=== PATIENT | female | born 1995 | race African-American/Black ===

== ENCOUNTER 2018-09-11 14:51 | Emergency (ER) | payer SELFPAY ==
--- NOTE | 2018-09-11 15:21 | ER ---
Nurse's Notes [facility] Name: Porter Olson Age: 23 yrs Sex: Female : 1995 Arrival Date: 09/11/2018 Time: 14:59 Bed 12 Private MD: None, None Diagnosis: Otalgia, left ear Presentation: 09/11 15:03 Presenting complaint: Left ear pain x 4 days. Denies fever. Transition of care: patient hb was not received from another setting of care. Onset of symptoms was September 07, 2018. Risk Assessment: Do you want to hurt yourself or someone else? Patient reports no desire to harm self or others. Initial Sepsis Screen: Does the patient meet any 2 criteria? No. Patient's initial sepsis screen is negative. Does the patient have a suspected source of infection? No. Patient's initial sepsis screen is negative. Care prior to arrival: Medication(s) given: Tylenol, at 0830. 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 - Social history:: Smoking status: Patient/guardian denies using tobacco. - Ebola Screening: : No symptoms or risks identified at this time. Screenin:12 Abuse screen: Denies threats or abuse. Denies injuries from another. Nutritional hb screening: No deficits noted. Tuberculosis screening: No symptoms or risk factors identified. Fall Risk None identified. Assessment: 15:12 General: Appears in no apparent distress. Behavior is calm, cooperative. Pain: Pain hb currently is 10 out of 10 on a pain scale. Neuro: Level of Consciousness is awake, alert, obeys commands, Oriented to person, place, time, situation. Cardiovascular: Capillary refill < 3 seconds Patient's skin is warm and dry. Respiratory: Airway is patent Respiratory effort is even, unlabored, Respiratory pattern is regular, symmetrical. GI: No signs and/or symptoms were reported involving the gastrointestinal system. : No signs and/or symptoms were reported regarding the genitourinary system. EENT: Reports pain since left ear. Derm: Skin is intact, is healthy with good turgor. Musculoskeletal: No signs and/or symptoms reported regarding the musculoskeletal system. Vital Signs: 15:05 BP 142 / 76; Pulse 86; Resp 16; Temp 98.3; Pulse Ox 100% on R/A; Weight 83.91 kg; hb Height 4 ft. 11 in. (149.86 cm); Pain 10/10; 15:05 Body Mass Index 37.36 (83.91 kg, 149.86 cm) hb ED Course: 14:59 Patient arrived in ED. dl4 15:00 None, None is Private Physician. dl4 15:04 Triage completed. hb 15:04 Arm band placed on. hb 15:09 Candida Pina F[facility]-C [facility]. kb 15:09 Yunier Bautista MD is Attending Physician. kb 15:12 Patient has correct armband on for positive identification. Call light in reach. hb 15:15 Leona Elliott, RN is Primary Nurse. hb 15:44 No provider procedures requiring assistance completed. Patient did not have IV access hb during this emergency room visit. Administered Medications: 15:30 Drug: Ibuprofen 800 mg Route: PO; hb 15:44 Follow up: Response: Medication administered at discharge. hb Outcome: 15:20 Discharge ordered by . kb 15:44 Discharged to home ambulatory, with significant other. hb 15:44 Condition: stable 15:44 Discharge instructions given to patient, Instructed on discharge instructions, follow up and referral plans. medication usage, Demonstrated understanding of instructions, follow-up care, medications. 15:44 Patient left the ED. hb Signatures: Candida Pina FNP-C FNP-Leona De La Fuente, RN RN Brad Dial dl4 Corrections: (The following items were deleted from the chart) 15:20 15:05 BP 142 / 76; Pulse 16bpm; Resp 16bpm; Pulse Ox 100% RA; Temp 98.3F; 83.91 kg; hb Height 4 ft. 11 in.; BMI: 37.3; Pain 10/10; hb
--- NOTE | 2018-09-11 15:22 | EDPHYS ---
Physician Documentation [facility] Name: Porter Olson Age: 23 yrs Sex: Female : 1995 Arrival Date: 09/11/2018 Time: 14:59 Bed 12 Private MD: None, None ED Physician Yunier Bautista HPI: 09/11 15:35 This 23 yrs old Black Female presents to ER via Ambulatory with complaints of Ear Pain. kb 15:35 The patient presents with pain, moderate. The complaints affect the left ear. Onset: kb The symptoms/episode began/occurred 5 day(s) ago. Modifying factors: The symptoms are alleviated by nothing, the symptoms are aggravated by nothing. Associated signs and symptoms: The patient has no apparent associated signs or symptoms. Severity of symptoms: At their worst the symptoms were moderate in the emergency department the symptoms are unchanged. The patient has not experienced similar symptoms in the past. The patient has not recently seen a physician. 15:36 Left ear pain for 5 days. Denies fever or any other symptoms. 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 - Social history:: Smoking status: Patient/guardian denies using tobacco. - Ebola Screening: : No symptoms or risks identified at this time. ROS: 15:33 Constitutional: Negative for fever, chills, and weight loss, Neck: Negative for injury, kb pain, and swelling, Cardiovascular: Negative for chest pain, palpitations, and edema, Respiratory: Negative for shortness of breath, cough, wheezing, and pleuritic chest pain, Abdomen/GI: Negative for abdominal pain, nausea, vomiting, diarrhea, and constipation, MS/Extremity: Negative for injury and deformity, Skin: Negative for injury, rash, and discoloration, Neuro: Negative for headache, weakness, numbness, tingling, and seizure. 15:33 ENT: Positive for ear pain. Exam: 15:33 Constitutional: This is a well developed, well nourished patient who is awake, alert, kb and in no acute distress. Head/Face: Normocephalic, atraumatic. ENT: Nares patent. No nasal discharge, no septal abnormalities noted. Tympanic membranes are normal and external auditory canals are clear. Oropharynx with no redness, swelling, or masses, exudates, or evidence of obstruction, uvula midline. Mucous membranes moist. Neck: Trachea midline, no thyromegaly or masses palpated, and no cervical lymphadenopathy. Supple, full range of motion without nuchal rigidity, or vertebral point tenderness. No Meningismus. Chest/axilla: Normal chest wall appearance and motion. Nontender with no deformity. No lesions are appreciated. Cardiovascular: Regular rate and rhythm with a normal S1 and S2. No gallops, murmurs, or rubs. Normal PMI, no JVD. No pulse deficits. Respiratory: Lungs have equal breath sounds bilaterally, clear to auscultation and percussion. No rales, rhonchi or wheezes noted. No increased work of breathing, no retractions or nasal flaring. Abdomen/GI: Soft, non-tender, with normal bowel sounds. No distension or tympany. No guarding or rebound. No evidence of tenderness throughout. Skin: Warm, dry with normal turgor. Normal color with no rashes, no lesions, and no evidence of cellulitis. MS/ Extremity: Pulses equal, no cyanosis. Neurovascular intact. Full, normal range of motion. Neuro: Awake and alert, GCS 15, oriented to person, place, time, and situation. Cranial nerves II-XII grossly intact. Motor strength 5/5 in all extremities. Sensory grossly intact. Cerebellar exam normal. Normal gait. Vital Signs: 15:05 BP 142 / 76; Pulse 86; Resp 16; Temp 98.3; Pulse Ox 100% on R/A; Weight 83.91 kg; hb Height 4 ft. 11 in. (149.86 cm); Pain 10/10; 15:05 Body Mass Index 37.36 (83.91 kg, 149.86 cm) hb MDM: 15:09 Patient medically screened. kb 15:34 Data reviewed: vital signs, nurses notes. Data interpreted: Pulse oximetry: on room air kb is 100 %. Interpretation: normal. Counseling: I had a detailed discussion with the patient and/or guardian regarding: the historical points, exam findings, and any diagnostic results supporting the discharge/admit diagnosis, the need for outpatient follow up, an ENT specialist, a family practitioner, to return to the emergency department if symptoms worsen or persist or if there are any questions or concerns that arise at home. Administered Medications: 15:30 Drug: Ibuprofen 800 mg Route: PO; hb 15:44 Follow up: Response: Medication administered at discharge. Disposition: 17:20 Co-signature as Attending Physician, Yunier Bautista MD. rn Disposition: 09/11/18 15:20 Discharged to Home. Impression: Otalgia, left ear. - Condition is Stable. - Discharge Instructions: Earache, Adult. - Medication Reconciliation Form, Thank You Letter, Antibiotic Education, Prescription Opioid Use form. - Follow up: Emergency Department; When: As needed; Reason: Worsening of condition. Follow up: Private Physician; When: 2 - 3 days; Reason: Recheck today's complaints, Continuance of care, Re-evaluation by your physician. Signatures: Candida Pina, RPG PROGRAMMER ANALYST-C RPG PROGRAMMER ANALYST-Ckb Yunier Bautista MD MD rn Baxter, Heather, RN RN Corrections: (The following items were deleted from the chart) 15:44 15:20 09/11/2018 15:20 Discharged to Home. Impression: Otalgia, left ear. Condition is hb Stable. Forms are Medication Reconciliation Form, Thank You Letter, Antibiotic Education, Prescription Opioid Use. Follow up: Emergency Department; When: As needed; Reason: Worsening of condition. Follow up: Private Physician; When: 2 - 3 days; Reason: Recheck today's complaints, Continuance of care, Re-evaluation by your physician. kb
[2018-09-11] MEDS ORDERED: IBUPROFEN 200 MG TAB PO ONE (15:42)
== END 2018-09-11 15:44 | disposition home or self-care (01) ==
LOC: ER 14:51
DX: H92.02 Otalgia, left ear (principal)
CPT/HCPCS: 99283

== ENCOUNTER 2018-09-12 00:09 | Emergency (ER) | payer SELFPAY ==
--- NOTE | 2018-09-12 01:39 | ER ---
Nurse's Notes [facility] Name: Porter Olson Age: 23 yrs Sex: Female : 1995 Arrival Date: 09/12/2018 Time: 00:11 Bed 5 Private MD: Diagnosis: Acute lymphadenitis of face, head and neck-left post auricular Presentation: 09/12 00:31 Presenting complaint: Patient states: i was here earlier today for ear pain but it is sr6 still hurting. Transition of care: patient was not received from another setting of care. Onset of symptoms was September 12, 2018. Risk Assessment: Do you want to hurt yourself or someone else? Patient reports no desire to harm self or others. Initial Sepsis Screen: Does the patient meet any 2 criteria? No. Patient's initial sepsis screen is negative. Does the patient have a suspected source of infection? No. Patient's initial sepsis screen is negative. Care prior to arrival: None. 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 - Social history:: Smoking status: Patient/guardian denies using tobacco. - Ebola Screening: : No symptoms or risks identified at this time. Screenin:36 Abuse screen: Denies threats or abuse. Nutritional screening: No deficits noted. sr6 Tuberculosis screening: No symptoms or risk factors identified. Fall Risk None identified. Assessment: 00:36 General: Appears in no apparent distress. obese, Behavior is calm, cooperative. Pain: sr6 Complains of pain in left side of face and ear Pain currently is 10 out of 10 on a pain scale. Pain began 4 days ago. Neuro: Level of Consciousness is awake, alert, obeys commands, Oriented to person, place, time, situation. Cardiovascular: No deficits noted. Respiratory: Respiratory effort is even, unlabored. GI: No signs and/or symptoms were reported involving the gastrointestinal system. EENT: Reports pain in left side of face and ear. Musculoskeletal: Circulation, motion, and sensation intact. 02:11 Reassessment: Patient and/or family updated on plan of care and expected duration. Pain bb level reassessed. Patient is alert, oriented x 3, equal unlabored respirations, skin warm/dry/pink. pt states pain is slowly going away verbalized understanding of and agrees to plan of care discharge instructions given pt ambulated with steady gait to exit accompanied by family Patient states feeling better. Vital Signs: 00:34 BP 132 / 89; Pulse 78; Resp 18 S; Temp 98.2(O); Pulse Ox 100% on R/A; Weight 99.79 kg sr6 (R); Height 5 ft. (152.40 cm); Pain 10/10; 00:34 Body Mass Index 42.97 (99.79 kg, 152.40 cm) sr6 ED Course: 00:11 Patient arrived in ED. ag3 00:16 David Greonimo PA is PHCP. cp 00:16 David Keating MD is Attending Physician. cp 00:33 Triage completed. sr6 00:34 Arm band placed on Patient placed in an exam room, on a stretcher, on pulse oximetry. sr6 Family accompanied patient. 00:35 Strep swab sent to lab. sr6 00:36 Patient has correct armband on for positive identification. Bed in low position. Call sr6 light in reach. Adult w/ patient. 00:42 Patient did not have IV access during this emergency room visit. sr6 02:12 No provider procedures requiring assistance completed. Patient did not have IV access bb during this emergency room visit. Administered Medications: 01:49 Drug: TORadol 60 mg Route: IM; Site: left gluteus; bb 02:12 Follow up: Response: Pain is decreased bb Outcome: 01:38 Discharge ordered by . cp 02:12 Discharged to home ambulatory, with family. bb 02:12 Condition: stable 02:12 Discharge instructions given to patient, Instructed on discharge instructions, follow up and referral plans. medication usage, Demonstrated understanding of instructions, follow-up care, medications, Prescriptions given X 1. 02:13 Patient left the ED. bb Signatures: Kely Wilson RN RN bb David Geronimo PA PA cp Gomez, Alice 3 Priscilla Deras sr6
--- NOTE | 2018-09-12 01:39 | EDPHYS ---
Physician Documentation [facility] Name: Porter Olson Age: 23 yrs Sex: Female : 1995 Arrival Date: 09/12/2018 Time: 00:11 Bed 5 Private MD: ED Physician David Keating HPI: 09/12 00:35 This 23 yrs old Black Female presents to ER via Ambulatory with complaints of Ear Pain. cp 00:35 The patient presents with pain, that is acute. The complaints affect the behind left cp ear. 00:35 Onset: The symptoms/episode began/occurred 4 day(s) ago. cp 00:35 Associated signs and symptoms: Pertinent negatives: cough, fever, sinus trouble, sore cp throat, vertigo, vomiting. Severity of symptoms: in the emergency department the symptoms are unchanged despite home interventions. The patient has been recently seen at the [facility] Emergency Department, today, for similar complaints given RX for Ibuprofen. 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 - Social history:: Smoking status: Patient/guardian denies using tobacco. - Ebola Screening: : No symptoms or risks identified at this time. ROS: 00:45 Constitutional: Negative for body aches, chills, fever, poor PO intake. cp 00:45 Eyes: Negative for injury, pain, redness, and discharge. cp 00:45 ENT: Positive for pain behind left ear, Negative for drainage from ear(s), sinus congestion, sinus pain, difficulty swallowing, difficulty handling secretions. 00:45 Cardiovascular: Negative for chest pain. 00:45 Respiratory: Negative for cough, wheezing. 00:45 Abdomen/GI: Negative for abdominal pain, nausea, vomiting, and diarrhea. 00:45 Skin: Negative for rash. 00:45 Neuro: Negative for altered mental status, headache, weakness. 00:45 All other systems are negative. Exam: 00:45 Constitutional: The patient appears in no acute distress, alert, awake, non-toxic, well cp developed, well nourished. 00:45 Head/Face: Normocephalic, atraumatic. cp 00:45 Eyes: Periorbital structures: appear normal, Conjunctiva: normal, no exudate, no injection, Sclera: no appreciated abnormality, Lids and lashes: appear normal, bilaterally. 00:45 ENT: External ear(s): are unremarkable, Ear canal(s): are normal, clear, TM's: dullness, bilaterally, Nose: is normal, Mouth: Lips: moist, Oral mucosa: pink and intact, moist, Posterior pharynx: is normal, airway is patent, no erythema, no exudate, Dental exam: normal. 00:45 Neck: ROM/movement: Meningeal signs: are not present, nuchal rigidity, is not appreciated, Lymph nodes: lymphadenopathy is appreciated, tender enlarged node left post auricular. 00:45 Chest/axilla: Inspection: normal. 00:45 Cardiovascular: Rate: normal. 00:45 Respiratory: the patient does not display signs of respiratory distress, Respirations: normal. 00:45 Skin: no rash present. Vital Signs: 00:34 BP 132 / 89; Pulse 78; Resp 18 S; Temp 98.2(O); Pulse Ox 100% on R/A; Weight 99.79 kg sr6 (R); Height 5 ft. (152.40 cm); Pain 10/10; 00:34 Body Mass Index 42.97 (99.79 kg, 152.40 cm) sr6 MDM: 00:29 Patient medically screened. cp 01:00 Differential diagnosis: otitis media, otitis externa, acute otalgia, barotrauma , cp mastoiditis, lymphadenitis, strep throat, abscess, cellulitis, TMJ pain, neuralgia. 01:37 Data reviewed: vital signs, nurses notes, and as a result, I will discharge patient. cp 01:37 Counseling: I had a detailed discussion with the patient and/or guardian regarding: the cp historical points, exam findings, and any diagnostic results supporting the discharge/admit diagnosis, lab results, to return to the emergency department if symptoms worsen or persist or if there are any questions or concerns that arise at home. Response to treatment: the patient's symptoms have mildly improved after treatment, and as a result, I will discharge patient. 09/12 01:27 Order name: Group A Streptococcus Rapid Sc EDWI 09/12 01:41 Order name: Throat Culture EDWI Administered Medications: 01:49 Drug: TORadol 60 mg Route: IM; Site: left gluteus; bb 02:12 Follow up: Response: Pain is decreased bb Disposition: 09/12/18 01:38 Discharged to Home. Impression: Acute lymphadenitis of face, head and neck - left post auricular. - Condition is Stable. - Discharge Instructions: Lymphadenopathy. - Prescriptions for Keflex 500 mg Oral Capsule - take 1 capsule by ORAL route every 8 hours for 10 days; 30 capsule. - Family Work Release, Medication Reconciliation Form, Thank You Letter, Antibiotic Education, Prescription Opioid Use form. - Follow up: Private Physician; When: 48 Hours; Reason: Worsening of condition. - Problem is new. - Symptoms have improved. Addendum: 09/13/2018 07:12 Co-signature as Attending Physician, David Keating MD I agree with the assessment and c larose plan of care. Signatures: Dispatcher [employer] [facility] David Keating MD MD cha Ballard, Brenda, RN RN David Cespedes PA PA cp Roque, Sharlyn sr6 Corrections: (The following items were deleted from the chart) 09/12 02:13 01:38 09/12/2018 01:38 Discharged to Home. Impression: Acute lymphadenitis of face, bb head and neck - left post auricular. Condition is Stable. Forms are Medication Reconciliation Form, Thank You Letter, Antibiotic Education, Prescription Opioid Use. Follow up: Private Physician; When: 48 Hours; Reason: Worsening of condition. Problem is new. Symptoms have improved. cp
[2018-09-12] MEDS ORDERED: KETOROLAC 30 MG/ML INJ ONE (01:58)
== END 2018-09-12 02:13 | disposition home or self-care (01) ==
LOC: ER 00:09
DX: L04.0 Acute lymphadenitis of face, head and neck (principal)
CPT/HCPCS: 87070; 87081; 96372; 99284

== ENCOUNTER 2020-02-04 02:29 | Emergency (ER) | payer OTHER, SELFPAY ==
[2020-02-04 03:00] LABS: Absolute Lymphocytes (CBC) 1.8 K/uL (0.7-4.9); Basophils % 0.9 % (0-1.3); Hematocrit 37.3 % (36.0-45.0); Lymphocytes % 18.1 % (15.3-44.8); MPV 10.1 fL (7.6-11.3); RBC Red Blood Cell Count 4.77 M/uL (3.86-4.86)
[2020-02-04 03:39] LABS: Potassium 3.7 mmol/L (3.5-5.1)
[2020-02-04 03:55] LABS: Urine Bacteria <20 /HPF (<20)
[2020-02-04 03:56] LABS: Urine Blood 3+ (NEG); Urine Glucose NEGATIVE (NEG); Urine Protein 1+ (NEG); Urine Specific Gravity >1.030 (1.005-1.030)
--- NOTE | 2020-02-04 04:54 | EDPHYS ---
Physician Documentation [facility] Name: Porter Olson Age: 25 yrs Sex: Female : 1995 Arrival Date: 02/04/2020 Time: 02:30 Bed 6 Private MD: ED Physician Bunny Bowen HPI: 02/03 02:38 This 25 yrs old Black Female presents to ER via EMS with complaints of Vaginal Bleeding.tw4 02:38 The patient presents with vaginal bleeding that is moderate, a desire for an ultrasound tw4 to document her . Onset: The symptoms/episode began/occurred just prior to arrival, today. Modifying factors: The symptoms are alleviated by nothing, the symptoms are aggravated by nothing. Associated signs and symptoms: The patient has no apparent associated signs or symptoms. Severity of symptoms: At their worst the symptoms were moderate, in the emergency department the symptoms are unchanged. The patient has not experienced similar symptoms in the past. 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 - Social history:: Smoking status: unknown Patient/guardian denies using street drugs. ROS: 02:38 Positive for vaginal bleeding. tw4 02:38 Constitutional: Negative for fever, chills, and weight loss, Eyes: Negative for injury, pain, redness, and discharge, Cardiovascular: Negative for chest pain, palpitations, and edema, Respiratory: Negative for shortness of breath, cough, wheezing, and pleuritic chest pain, Abdomen/GI: Negative for abdominal pain, nausea, vomiting, diarrhea, and constipation, Back: Negative for injury and pain. 02:38 MS/Extremity: Negative for injury and deformity, Skin: Negative for injury, rash, and discoloration. Exam: 02:38 Constitutional: This is a well developed, well nourished patient who is awake, alert, tw4 and in no acute distress. Head/Face: Normocephalic, atraumatic. Cardiovascular: Regular rate and rhythm with a normal S1 and S2. No gallops, murmurs, or rubs. Normal PMI, no JVD. No pulse deficits. Respiratory: Lungs have equal breath sounds bilaterally, clear to auscultation and percussion. No rales, rhonchi or wheezes noted. No increased work of breathing, no retractions or nasal flaring. Abdomen/GI: Soft, non-tender, with normal bowel sounds. No distension or tympany. No guarding or rebound. No evidence of tenderness throughout. Skin: Warm, dry with normal turgor. Normal color with no rashes, no lesions, and no evidence of cellulitis. MS/ Extremity: Pulses equal, no cyanosis. Neurovascular intact. Full, normal range of motion. Neuro: Awake and alert, GCS 15, oriented to person, place, time, and situation. Cranial nerves II-XII grossly intact. Motor strength 5/5 in all extremities. Sensory grossly intact. Cerebellar exam normal. Normal gait. Vital Signs: 02:30 BP 129 / 78; Pulse 110; Resp 18; Temp 99.1; Pulse Ox 100% ; Pain 0/10; rr5 02:50 Weight 99.79 kg; Height 5 ft. 1 in. (154.94 cm); rr5 03:58 BP 121 / 62; Pulse 105; Resp 17; Pulse Ox 98% ; rr5 05:00 BP 115 / 70; Pulse 104; Resp 17; Pulse Ox 99% ; rr5 02:50 Body Mass Index 41.57 (99.79 kg, 154.94 cm) rr5 MDM: 02:36 Patient medically screened. 4 02/03 02:33 Order name: Abo/rh Typing; Complete Time: 09: ww [facility] 02/03 02:33 Order name: Basic Metabolic Panel; Complete Time: 09:15 ww [facility] 02/03 02:33 Order name: CBC with Diff; Complete Time: 09:15 ww [facility] 02/03 02:33 Order name: Beta hcg; Complete Time: 04:53 ww [facility] 02/03 02:55 Order name: Urine Dipstick--Ancillary (enter results) [facility] 02/03 02:55 Order name: Urine --Ancillary (enter results) [facility] 02/03 02:33 Order name: IV Saline Lock; Complete Time: 02:33 ww [facility] 02/03 02:33 Order name: Labs collected and sent; Complete Time: 02:33 ww [facility] 02/03 02:55 Order name: Urine Microscopic Only; Complete Time: 09:15 mw2 02/03 02:55 Order name: Urine Dipstick-Ancillary; Complete Time: 09:15 EDMS 02/03 02:56 Order name: Urine --Ancillary; Complete Time: 09:15 EDMS 02/03 03:56 Order name: Urine Culture; Complete Time: 09:15 EDMS 02/03 04:32 Order name: Transvaginal OB; Complete Time: 09:15 EDMS 02/03 02:33 Order name: NPO; Complete Time: 02:33 mg2 02/03 02:33 Order name: Urine Dipstick-Ancillary (obtain specimen); Complete Time: 02:49 mg2 02/03 02:33 Order name: Urine Test (obtain specimen); Complete Time: 02:49 mg2 Administered Medications: No medications were administered Disposition: 02/04/20 04:53 Discharged to Home. Impression: Threatened . - Condition is Stable. - Discharge Instructions: Threatened Miscarriage. - Medication Reconciliation Form, Thank You Letter, Antibiotic Education, Prescription Opioid Use form. - Follow up: Private Physician; When: Upon discharge from the Emergency Department; Reason: Recheck today's complaints, Continuance of care, Re-evaluation by your physician. Follow up: Malissa Ross MD; When: Upon discharge from the Emergency Department; Reason: Recheck today's complaints, Continuance of care, Re-evaluation by your physician. Follow up: Henry Lares MD; When: Upon discharge from the Emergency Department; Reason: If symptoms return, Recheck today's complaints, Continuance of care, Re-evaluation by your physician. Follow up: Paola Lopez MD; When: Upon discharge from the Emergency Department; Reason: If symptoms return, Recheck today's complaints, Continuance of care, Re-evaluation by your physician. - Problem is new. - Symptoms have improved. Signatures: Dispatcher [employer] [facility] Candida Pina, ANDRES MURRIETA-Bunny Hanks MD MD tw4 Guerrero Hackett RN RN mg2 Cl Deras RN RN rr5 Corrections: (The following items were deleted from the chart) 04:32 02:38 OB Limited+US.RAD.BRZ ordered. [facility] 04:55 04:53 02/04/2020 04:53 Discharged to Home. Impression: Threatened . Condition tw4 is Stable. Forms are Medication Reconciliation Form, Thank You Letter, Antibiotic Education, Prescription Opioid Use. Follow up: Private Physician; When: Upon discharge from the Emergency Department; Reason: Recheck today's complaints, Continuance of care, Re-evaluation by your physician. Problem is new. Symptoms have improved. tw4 05:09 04:55 02/04/2020 04:53 Discharged to Home. Impression: Threatened . Condition rr5 is Stable. Discharge Instructions: Threatened Miscarriage. Forms are Medication Reconciliation Form, Thank You Letter, Antibiotic Education, Prescription Opioid Use. Follow up: Private Physician; When: Upon discharge from the Emergency Department; Reason: Recheck today's complaints, Continuance of care, Re-evaluation by your physician. Follow up: Malissa Ross; When: Upon discharge from the Emergency Department; Reason: Recheck today's complaints, Continuance of care, Re-evaluation by your physician. Follow up: Henry Lares; When: Upon discharge from the Emergency Department; Reason: If symptoms return, Recheck today's complaints, Continuance of care, Re-evaluation by your physician. Follow up: Paola Lopez; When: Upon discharge from the Emergency Department; Reason: If symptoms return, Recheck today's complaints, Continuance of care, Re-evaluation by your physician. Problem is new. Symptoms have improved. tw4
--- NOTE | 2020-02-04 04:54 | ER ---
Nurse's Notes [facility] Name: Porter Olson Age: 25 yrs Sex: Female : 1995 Arrival Date: 02/04/2020 Time: 02:30 Bed 6 Private MD: Diagnosis: Threatened Presentation: 02/03 02:30 Chief complaint: EMS states: she woke up noticed she is bleeding with clots, she can't rr5 remember the exact LMP. HR 110bpm. 02:30 Coronavirus screen: Client denies travel out of the [place] in the last 14 days. At this rr5 time, the client does not indicate any symptoms associated with coronavirus-19. Ebola Screen: Patient negative for fever greater than or equal to 101.5 degrees Fahrenheit, and additional compatible Ebola Virus Disease symptoms Patient denies exposure to infectious person. Patient denies travel to an Ebola-affected area in the 21 days before illness onset. Initial Sepsis Screen: Does the patient meet any 2 criteria? No. Patient's initial sepsis screen is negative. Does the patient have a suspected source of infection? No. Patient's initial sepsis screen is negative. Risk Assessment: Do you want to hurt yourself or someone else? Patient reports no desire to harm self or others. Onset of symptoms was February 04, 2020. 02:30 Method Of Arrival: EMS: [facility] rr5 02:30 Acuity: RAFAEL 3 rr5 02:30 Note patient stated she took test last Sunday and it was positive. 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 - Social history:: Smoking status: unknown Patient/guardian denies using street drugs. Screenin:35 Abuse screen: Denies threats or abuse. Denies injuries from another. Nutritional mg2 screening: No deficits noted. Tuberculosis screening: No symptoms or risk factors identified. Fall Risk IV access (20 points). Assessment: 02:34 General: Appears in no apparent distress. comfortable, Behavior is calm, cooperative. mg2 Pain: Denies pain. Neuro: Level of Consciousness is awake, alert, obeys commands, Oriented to person, place, time, situation. Cardiovascular: Capillary refill < 3 seconds Patient's skin is warm and dry. Respiratory: Airway is patent Respiratory effort is even, unlabored, Respiratory pattern is regular, symmetrical. GI: No signs and/or symptoms were reported involving the gastrointestinal system. : Reports vaginal bleeding that is with clots, since today. EENT: No signs and/or symptoms were reported regarding the EENT system. Derm: Skin is intact, is healthy with good turgor, Skin is pink, warm \T\ dry. normal. Musculoskeletal: Circulation, motion, and sensation intact. Capillary refill < 3 seconds. 03:51 Reassessment: Patient appears in no apparent distress at this time. Patient and/or mg2 family updated on plan of care and expected duration. Pain level reassessed. Patient is alert, oriented x 3, equal unlabored respirations, skin warm/dry/pink. patient informed about the waiting time for ultrasound. 04:20 Reassessment: Patient appears in no apparent distress at this time. Patient is alert, rr5 oriented x 3, equal unlabored respirations, skin warm/dry/pink. ultrasound at bedside. 05:00 Reassessment: Patient appears in no apparent distress at this time. Patient is alert, rr5 oriented x 3, equal unlabored respirations, skin warm/dry/pink. discharge instruction given and explained without complaints made. Vital Signs: 02:30 BP 129 / 78; Pulse 110; Resp 18; Temp 99.1; Pulse Ox 100% ; Pain 0/10; rr5 02:50 Weight 99.79 kg; Height 5 ft. 1 in. (154.94 cm); rr5 03:58 BP 121 / 62; Pulse 105; Resp 17; Pulse Ox 98% ; rr5 05:00 BP 115 / 70; Pulse 104; Resp 17; Pulse Ox 99% ; rr5 02:50 Body Mass Index 41.57 (99.79 kg, 154.94 cm) rr5 ED Course: 02:30 Patient arrived in ED. cl3 02:33 Guerrero Hackett, RN is Primary Nurse. mg2 02:33 No provider procedures requiring assistance completed. Inserted saline lock: 20 gauge mg2 in right antecubital area, using aseptic technique. Blood collected. 02:35 Patient has correct armband on for positive identification. Pulse ox on. NIBP on. Door mg2 closed. Warm blanket given. 02:35 Arm band placed on right wrist. rr5 02:36 Triage completed. rr5 02:36 Bunny Bowen MD is Attending Physician. tw4 02:49 Urine collected: clean catch specimen, clear. rr5 04:34 Transvaginal OB In Process Unspecified. EDMS 04:55 Malissa Ross MD is Referral Physician. tw4 04:55 Henry Lares MD is Referral Physician. tw4 04:55 Paola Lopez MD is Referral Physician. tw4 05:05 IV discontinued, intact, bleeding controlled, No redness/swelling at site. Pressure rr5 dressing applied. Administered Medications: No medications were administered Outcome: 04:53 Discharge ordered by MD. tw4 05:05 Discharged to home via wheelchair. rr5 05:05 Condition: stable 05:05 Discharge instructions given to patient, Instructed on discharge instructions, follow up and referral plans. Demonstrated understanding of instructions, follow-up care. 05:09 Patient left the ED. rr5 Addendum: 02/07/2020 09:26 Addendum: Culture Results: Positive urine culture. Patient was not prescribed s v antibiotics at discharge. Report given to QUINTIN for further evaluation and then to qualification engineer for follow up with patient. Phone call Attempt #1 left voicemail. Signatures: Dispatcher [employer] EDSameera Ruggiero RN RN Bunny Bowen MD MD tw4 Guerrero Hackett RN RN mg2 Cl Deras RN RN rr5 Walt Nina cl3
--- NOTE | 2020-02-04 10:18 | RAD REPORT ---
EXAM DESCRIPTION: US , Transvaginal CLINICAL HISTORY: The patient is 25 years old and is Female; ABD PAIN passing clots. TECHNIQUE: Real-time transvaginal obstetrical ultrasound of the maternal pelvis and a first trimeste r with image documentation. Transvaginal imaging was used for better evaluation of the fe tus and adnexa. COMPARISON: No relevant prior studies available. FINDINGS: Gestation: Small gestational sac along the anterior margin of the endometrium, average d iameter 0.7 cm. No yolk sac or pole. Placenta/amniotic fluid: Subchorionic hemorrhage, 2.0 x 0.7 cm. Uterus/cervix: Uterus is 9.6 x 5.8 x 5.6 cm in size. No myometrial mass. Ovaries: Left ovary not visualized. Right ovary 2.6 x 2.7 x 2.0 cm in size. Free fluid: No free fluid. IMPRESSION: 1. Empty intrauterine gestational sac, EGA five weeks. This may be secondary to early gestation, blighted ovum, pseudogestational sac of ectopic or threatened . Serial q uantitative hCGs and ultrasound follow-up recommended. 2. Subchorionic hemorrhage, 2.0 x 0.7 cm. 3. Left ovary not visualized. Electronically signed by: Sameera Christy MD 02/04/2020 7:02 AM CUSTOMS INVESTIGATOR Due to temporary technical issues with the PACS/Fluency reporting system, reports are being signed by the in house radiologist without review as a courtesy to ensure prompt reporting. The interpreting r adiologist is fully responsible for the content of the report.
[2020-02-06 00:39] VITALS: TEMP 99.1
[2020-02-06 00:41] VITALS: BP 115/70; O2SAT 99
== END 2020-02-04 05:09 | disposition home or self-care (01) ==
LOC: ER 02:29
DX: O20.0 Threatened abortion (principal); Z3A.01 Less than 8 weeks gestation of pregnancy
CPT/HCPCS: 36415; 76817; 80048; 81003; 81015; 81025; 84702; 85025; 86900; 86901; 87077; 87086; 87088; 87186; 99284

== ENCOUNTER 2020-08-26 13:24 | Emergency (ER) | payer OTHER ==
--- OUTSIDE RECORDS SUMMARY | 2020-08-26 13:27 | XMS REPORT | Continuity of Care Document ---
:1995 Author Organization [facility] t Address [address] [place] [address] Care Team Providers Name Role Phone Rosario Andrade Attending Clinician Problems This patient has no known problems. Allergies, Adverse Reactions, Alerts This patient has no known allergies or adverse reactions. Medications This patient has no known medications. Procedures This patient has no known procedures. 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
--- NOTE | 2020-08-26 13:44 | ER ---
Nurse's Notes [facility] Name: Porter Olson Age: 25 yrs Sex: Female : 1995 Arrival Date: 08/26/2020 Time: 13:27 Bed Waiting Private MD: Diagnosis: Unspecified otitis externa, right ear Presentation: 08/26 13:40 Chief complaint: Patient states: R ear pain x 1 day. Had an earache 2 weeks ago and sv went away. Coronavirus screen: Client denies travel out of the [place] in the last 14 days. At this time, the client does not indicate any symptoms associated with coronavirus-19. Ebola Screen: No symptoms or risks identified at this time. Risk Assessment: Do you want to hurt yourself or someone else? Patient reports no desire to harm self or others. Onset of symptoms was August 25, 2020. 13:40 Method Of Arrival: Ambulatory sv 13:40 Acuity: RAFAEL 5 sv 13:41 Initial Sepsis Screen: Does the patient meet any 2 criteria? No. Patient's initial sv sepsis screen is negative. Does the patient have a suspected source of infection? No. Patient's initial sepsis screen is negative. Triage Assessment: 13:42 General: Appears in no apparent distress. comfortable, Behavior is calm, cooperative, sv appropriate for age. Pain: Complains of pain in right ear. Neuro: Level of Consciousness is awake, alert, obeys commands, Oriented to person, place, time, situation, Gait is steady. Respiratory: Respiratory effort is even, unlabored. Historical: - Allergies: 13:39 No Known Drug Allergies; sv - Immunization history:: Client reports having NOT received the Covid vaccine. - Social history:: Smoking status: Patient denies any tobacco usage or history of. Screenin:42 Abuse screen: Denies threats or abuse. Denies injuries from another. Nutritional sv screening: No deficits noted. Tuberculosis screening: No symptoms or risk factors identified. Fall Risk None identified. Assessment: 13:43 Reassessment: Patient appears in no apparent distress at this time. No changes from sv previously documented assessment. See triage assessment. Vital Signs: 13:41 BP 124 / 88; Pulse 88; Resp 20; Temp 97.4; Pulse Ox 100% on R/A; Weight 101.15 kg; sv Height 5 ft. 0 in. (152.40 cm); 13:41 Body Mass Index 43.55 (101.15 kg, 152.40 cm) sv ED Course: 13:27 Patient arrived in ED. mr 13:36 Candida Pina FNP-C is [facility]. kb 13:36 Yunier Bautista MD is Attending Physician. kb 13:39 Arm band placed on. sv 13:40 Triage completed. sv 13:42 Patient has correct armband on for positive identification. sv 13:42 No provider procedures requiring assistance completed. Patient did not have IV access sv during this emergency room visit. Administered Medications: No medications were administered Outcome: 13:44 Discharge ordered by . kb 13:46 Patient left the ED. sv 13:46 Discharged to home ambulatory, with family. sv 13:46 Condition: stable 13:46 Discharge instructions given to patient, Instructed on discharge instructions, follow up and referral plans. medication usage, Demonstrated understanding of instructions, follow-up care, medications, Prescriptions given X 1. Signatures: Candida Pina FNP-C FNP-Ckb Verde, Stephanie, RN RN Román Courtney mr Corrections: (The following items were deleted from the chart) 13:41 13:41 Resp 20bpm; 101.15 kg; Height 5 ft. 0 in.; BMI: 43.5; sv sv 13:42 13:41 Pulse 88bpm; Resp 20bpm; Pulse Ox 100% RA; Temp 97.4F; 101.15 kg; Height 5 ft. 0 sv in.; BMI: 43.5; sv
--- NOTE | 2020-08-26 13:44 | EDPHYS ---
Physician Documentation [facility] Name: Porter Olson Age: 25 yrs Sex: Female : 1995 Arrival Date: 08/26/2020 Time: 13:27 Bed Waiting Private MD: ED Physician Yunier Bautista HPI: 08/26 13:45 This 25 yrs old Black Female presents to ER via Ambulatory with complaints of Ear Pain. kb 13:45 The patient presents with pain, moderate. The complaints affect the right ear. Onset: kb The symptoms/episode began/occurred yesterday. Modifying factors: The symptoms are alleviated by nothing, the symptoms are aggravated by touching. Associated signs and symptoms: The patient has no apparent associated signs or symptoms. Severity of symptoms: At their worst the symptoms were mild moderate in the emergency department the symptoms are unchanged. The patient has not experienced similar symptoms in the past. The patient has not recently seen a physician. Pt reports right ear pain that started yesterday. . Historical: - Allergies: 13:39 No Known Drug Allergies; sv - Immunization history:: Client reports having NOT received the Covid vaccine. - Social history:: Smoking status: Patient denies any tobacco usage or history of. ROS: 13:45 Constitutional: Negative for fever, chills, and weight loss, Respiratory: Negative for kb shortness of breath, cough, wheezing, and pleuritic chest pain, Skin: Negative for injury, rash, and discoloration, Neuro: Negative for headache, weakness, numbness, tingling, and seizure. 13:45 ENT: Positive for ear pain. Exam: 13:45 Constitutional: This is a well developed, well nourished patient who is awake, alert, kb and in no acute distress. Head/Face: Normocephalic, atraumatic. Respiratory: Respirations even and unlabored. No increased work of breathing, no retractions or nasal flaring. Skin: Warm, dry with normal turgor. Normal color. MS/ Extremity: Pulses equal, no cyanosis. Neurovascular intact. Full, normal range of motion. Neuro: Awake and alert, GCS 15, oriented to person, place, time, and situation. Moves all extremities. Normal gait. Psych: Awake, alert, with orientation to person, place and time. Behavior, mood, and affect are within normal limits. 13:45 ENT: External ear(s): are unremarkable, Ear canal(s): purulent discharge, that is minimal, swelling, that is moderate, of the right canal, TM's: are normal. Vital Signs: 13:41 BP 124 / 88; Pulse 88; Resp 20; Temp 97.4; Pulse Ox 100% on R/A; Weight 101.15 kg; sv Height 5 ft. 0 in. (152.40 cm); 13:41 Body Mass Index 43.55 (101.15 kg, 152.40 cm) sv MDM: 13:43 Patient medically screened. kb 13:45 Data reviewed: vital signs, nurses notes. Data interpreted: Pulse oximetry: on room air kb is 100 %. Interpretation: normal. Counseling: I had a detailed discussion with the patient and/or guardian regarding: the historical points, exam findings, and any diagnostic results supporting the discharge/admit diagnosis, the need for outpatient follow up, an ENT specialist, to return to the emergency department if symptoms worsen or persist or if there are any questions or concerns that arise at home. Administered Medications: No medications were administered Disposition: 15:34 Co-signature as Attending Physician, Yunier Bautista MD. rn Disposition Summary: 08/26/20 13:44 Discharge Ordered Location: Home kb Condition: Stable kb Diagnosis - Unspecified otitis externa, right ear kb Followup: kb - With: Emergency Department - When: As needed - Reason: Worsening of condition Followup: kb - With: Private Physician - When: 2 - 3 days - Reason: Recheck today's complaints, Continuance of care, Re-evaluation by your physician Discharge Instructions: - Discharge Summary Sheet kb - Otitis Externa, [id number] kb - Ear Drops, Adult, [id number] kb Forms: - Medication Reconciliation Form kb - Thank You Letter kb - Antibiotic Education kb - Prescription Opioid Use kb Prescriptions: - Cortisporin-TC 3.3-3-10-0.5 mg/mL Otic Suspension - instill 4 drops by OTIC route every 6 hours; 1 bottle; Refills: 0, Product kb Selection Permitted Signatures: Candida Pina, Sameera Seay RN RN sv Yunier Bautista MD MD rn
[2020-08-26 14:03] VITALS: BP 124/88; TEMP 97.4; O2SAT 100
== END 2020-08-26 13:46 | disposition home or self-care (01) ==
LOC: ER 13:24
DX: H60.91 Unspecified otitis externa, right ear (principal)
CPT/HCPCS: 99282

== ENCOUNTER 2020-11-22 01:45 | Emergency (ER) | payer OTHER ==
[2020-11-22] MEDS ORDERED: TETRACAINE HCL 0.5% 4ML OPTH ONE (02:34)
[2020-11-22] MEDS ORDERED: HYDROCODONE/APAP 5/325 MG TAB ONE (03:04)
--- NOTE | 2020-11-22 03:45 | EDPHYS ---
Physician Documentation [facility] Name: Porter Olson Age: 25 yrs Sex: Female : 1995 Arrival Date: 11/22/2020 Time: 01:50 Bed 30 Private MD: ED Physician Jon Puente HPI: 11/22 01:57 This 25 yrs old Black Female presents to ER via Unassigned with complaints of Bug in mh7 the left ear. 01:57 The patient presents with a foreign body sensation, presumably from an insect. The mh7 complaints affect the left ear. Onset: The symptoms/episode began/occurred just prior to arrival, today. Modifying factors: The symptoms are alleviated by nothing, the symptoms are aggravated by nothing. Associated signs and symptoms: Pertinent negatives: cough, fever, lightheadedness, nausea, rhinorrhea, sinus trouble, shortness of breath, sore throat, tinnitus, vertigo, vomiting. Severity of symptoms: At their worst the symptoms were mild today, in the emergency department the symptoms are unchanged. 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 - Social history:: Patient/guardian denies using alcohol, street drugs, IV drugs, over the counter diet medications, tobacco products, Smoking status: Patient/guardian denies using alcohol, street drugs, IV drugs, over the counter diet medications, tobacco products. ROS: 01:57 Constitutional: Negative for fever, chills, and weight loss, Eyes: Negative for injury, mh7 pain, redness, and discharge, Neck: Negative for injury, pain, and swelling, Cardiovascular: Negative for chest pain, palpitations, and edema, Respiratory: Negative for shortness of breath, cough, wheezing, and pleuritic chest pain, Abdomen/GI: Negative for abdominal pain, nausea, vomiting, diarrhea, and constipation, Back: Negative for injury and pain, : Negative for injury, bleeding, discharge, and swelling, MS/Extremity: Negative for injury and deformity, Skin: Negative for injury, rash, and discoloration, Neuro: Negative for headache, weakness, numbness, tingling, and seizure, Psych: Negative for depression, anxiety, suicide ideation, homicidal ideation, and hallucinations, Allergy/Immunology: Negative for hives, rash, and allergies, Endocrine: Negative for neck swelling, polydipsia, polyuria, polyphagia, and marked weight changes, Hematologic/Lymphatic: Negative for swollen nodes, abnormal bleeding, and unusual bruising. Exam: 01:57 Constitutional: This is a well developed, well nourished patient who is awake, alert, mh7 and in no acute distress. Head/Face: Normocephalic, atraumatic. Eyes: Pupils equal round and reactive to light, extra-ocular motions intact. Lids and lashes normal. Conjunctiva and sclera are non-icteric and not injected. Cornea within normal limits. Periorbital areas with no swelling, redness, or edema. 01:57 Skin: Warm, dry with normal turgor. Normal color with no rashes, no lesions, and no evidence of cellulitis. MS/ Extremity: Pulses equal, no cyanosis. Neurovascular intact. Full, normal range of motion. Neuro: Awake and alert, GCS 15, oriented to person, place, time, and situation. Cranial nerves II-XII grossly intact. Motor strength 5/5 in all extremities. Sensory grossly intact. Cerebellar exam normal. Normal gait. Psych: Awake, alert, with orientation to person, place and time. Behavior, mood, and affect are within normal limits. 01:57 ENT: External ear(s): are unremarkable, Ear canal(s): foreign body, an insect, in the left external ear canal, TM's: not visable, because of a foreign body, Examination of the other ear shows no obvious abnormality, Nose: is normal. Vital Signs: 01:45 BP 129 / 85; Pulse 57; Resp 20; Temp 98.5; Pulse Ox 100% on R/A; cc4 02:00 BP 130 / 82; Pulse 94; Resp 20; Pulse Ox 100% on R/A; cc4 03:00 BP 127 / 80; Pulse 69; Resp 20; Pulse Ox 100% on R/A; cc4 04:00 BP 125 / 65; Pulse 68; Resp 20; Temp 98.5(O); Pulse Ox 100% on R/A; cc4 Procedures: 03:33 Foreign Body Removal: an insect, from the left ear canal, by using a curette, cp irrigation and suction. The patient tolerated the removal well, partial removal of insect. MDM: 03:42 Differential diagnosis: otitis media, otitis externa, ruptured TM, foreign body, acute mh7 otalgia, cerumen impaction, barotrauma , serotympanum. Data reviewed: vital signs, nurses notes. Data interpreted: Pulse oximetry: on room air is 100 %. Interpretation: normal. Counseling: I had a detailed discussion with the patient and/or guardian regarding: the historical points, exam findings, and any diagnostic results supporting the discharge/admit diagnosis, the need for outpatient follow up, an ENT specialist, to return to the emergency department if symptoms worsen or persist or if there are any questions or concerns that arise at home. Response to treatment: the patient's symptoms have mildly improved after treatment. 03:[address] [facility] Administered Medications: 02:00 Drug: Tetracaine Solution (0.5 %) 0.5 application Route: Topical; Site: affected area; cc4 02:30 Follow up: Response: Pain is decreased cc4 02:35 Drug: HYDROcodone-acetaminophen (5 mg-500 mg) 1 tabs Route: PO; cc4 03:40 Follow up: Response: Pain is decreased cc4 03:40 Drug: Cortisporin (neomycin-polymyxin) Drops 4 drops Route: Otic; Site: left ear; cc4 03:40 Follow up: Response: No adverse reaction cc4 Disposition: 05:32 Co-signature as Attending Physician, Jon Puente MD. [facility] Disposition Summary: 11/22/20 03:45 Discharge Ordered Location: Home [facility] Problem: [facility] Symptoms: have improved [facility] Condition: Stable 7 Diagnosis - Foreign body in left ear - partial removal, insect 7 Followup: [facility] - With: Private Physician - When: 1 - 2 days - Reason: Worsening of condition, Recheck today's complaints, Continuance of care, Re-evaluation by your physician Followup: [facility] - With: Sameera Phan MD - When: 1 - 2 days - Reason: Worsening of condition, Recheck today's complaints Discharge Instructions: - Ear Foreign Body bb - Discharge Summary Sheet [facility] - Eye Foreign Body, [id number] [facility] Forms: - Medication Reconciliation Form [facility] - Thank You Letter 7 - Antibiotic Education mh7 - Prescription Opioid Use mh7 - Work release form cc4 Prescriptions: - Cortisporin-TC 3.3-3-10-0.5 mg/mL Otic Suspension - instill 4 drops by OTIC route every 6 hours; 1 bottle; Refills: 0, Product mh7 Selection Permitted Signatures: David Geronimo PA PA cp Holmes, Maurice, MD MD 7 [place] RN RN 4
--- NOTE | 2020-11-22 03:45 | ER ---
Nurse's Notes [facility] Name: Porter Olson Age: 25 yrs Sex: Female : 1995 Arrival Date: 11/22/2020 Time: 01:50 Bed 30 Private MD: Diagnosis: Foreign body in left ear-partial removal, insect Presentation: 11/22 01:45 Chief complaint: Patient states: "Bug in left ear x 30 minutes with lose of hearing."; cc4 states,"My ear is stopped up now"; denies any pain. Coronavirus screen: Vaccine status: Patient reports being unvaccinated. Client denies travel out of the [place] in the last 14 days. Denies symptoms of Covid-19. Ebola Screen: Patient negative for fever greater than or equal to 101.5 degrees Fahrenheit, and additional compatible Ebola Virus Disease symptoms Patient denies exposure to infectious person. Patient denies travel to an Ebola-affected area in the 21 days before illness onset. No symptoms or risks identified at this time. Initial Sepsis Screen: Does the patient meet any 2 criteria? No. Patient's initial sepsis screen is negative. Onset of symptoms was November 22, 2020. 01:45 Method Of Arrival: EMS: [facility] cc4 01:45 Acuity: RAFAEL 5 cc4 01:45 Risk Assessment: Do you want to hurt yourself or someone else? Patient reports no cc4 desire to harm self or others. 01:45 Initial Sepsis Screen: Does the patient have a suspected source of infection? No. cc4 Patient's initial sepsis screen is negative. Triage Assessment: 01:45 General: Appears in no apparent distress. Behavior is calm, cooperative. Pain: Denies cc4 pain. EENT: Reports "Bug in left ear x 30 minutes"; reports bug stopped moving after pouring rubbing alcohol into left ear canal; reports inability to hear out of left ear; NADN; VSS.. 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 - Social history:: Patient/guardian denies using alcohol, street drugs, IV drugs, over the counter diet medications, tobacco products, Smoking status: Patient/guardian denies using alcohol, street drugs, IV drugs, over the counter diet medications, tobacco products. Screenin:45 Abuse screen: Denies threats or abuse. Nutritional screening: No deficits noted. cc4 Tuberculosis screening: No symptoms or risk factors identified. Fall Risk None identified. Assessment: 01:45 General: Appears in no apparent distress. Behavior is calm, cooperative. EENT: Ear cc4 canal Reports "bug in left ear x 30 minutes"; states, "I put rubbing alcohol in my left ear and the bug stopped moving"; states, "Now I can't hear out of my left ear".. 02:00 Reassessment: No changes from previously documented assessment. ABHINAV Fisher in \\T\\ cc4 bedside \\T\\ instilled tetracaine drops 0.5% into left ear canal \\T\\ attempted to remove bug/insect from left ear with saline irrigation \\T\\ alligator forceps with only small fragments removed; pt requesting to stop due to discomfort. 02:35 Reassessment: No changes from previously documented assessment. Hydrocodone 5/325 mg cc4 tab 1 given po for left ear pain "8" on pain scale. 03:40 Reassessment: Patient appears in no apparent distress at this time. Reports decreasing cc4 pain left ear to "6" on pain scale; suction used per ABHINAV Fisher of left ear FB with sm. fragment of insect removed; cortispporin drops x4 instilled into left ear canal per ABHINAV Fisher, rajiv. well. Vital Signs: 01:45 BP 129 / 85; Pulse 57; Resp 20; Temp 98.5; Pulse Ox 100% on R/A; cc4 02:00 BP 130 / 82; Pulse 94; Resp 20; Pulse Ox 100% on R/A; cc4 03:00 BP 127 / 80; Pulse 69; Resp 20; Pulse Ox 100% on R/A; cc4 04:00 BP 125 / 65; Pulse 68; Resp 20; Temp 98.5(O); Pulse Ox 100% on R/A; cc4 ED Course: 01:[address] on Dr. Puente \\T\\ ABHINAV Fisher notified.. cc4 01:45 Patient has correct armband on for positive identification. Bed in low position. Call cc4 light in reach. Side rails up X2. 01:50 Patient arrived in ED. tt3 01:50 Jon Puente MD is Attending Physician. 7 02:00 Assist provider with foreign body removal of an insect. cc4 02:10 [place], RN is Primary Nurse. cc4 02:27 Triage completed. cc4 03:44 Sameera Phan MD is Referral Physician. 7 04:00 Patient did not have IV access during this emergency room visit. cc4 Administered Medications: 02:00 Drug: Tetracaine Solution (0.5 %) 0.5 application Route: Topical; Site: affected area; cc4 02:30 Follow up: Response: Pain is decreased cc4 02:35 Drug: HYDROcodone-acetaminophen (5 mg-500 mg) 1 tabs Route: PO; cc4 03:40 Follow up: Response: Pain is decreased cc4 03:40 Drug: Cortisporin (neomycin-polymyxin) Drops 4 drops Route: Otic; Site: left ear; cc4 03:40 Follow up: Response: No adverse reaction cc4 Outcome: 02:34 Condition: stable cc4 03:45 Discharge ordered by . 7 04:00 Discharged to home ambulatory. cc4 04:00 Condition: good 04:00 Discharge instructions given to patient, Instructed on discharge instructions, follow up and referral plans. medication usage, Demonstrated understanding of instructions, follow-up care, medications, Prescriptions given X 1. 04:19 Patient left the ED. cc4 Signatures: Jon Puente MD MD [facility] Be Arment[place] tt3 [place], STEVE RN cc4
[2020-11-22] MEDS ORDERED: NEOMY/POLY/HC 1% OTIC DROPS ONE (04:01)
[2020-11-22 04:24] VITALS: TEMP 98.5; O2SAT 100
[2020-11-22 04:27] VITALS: BP 125/65
== END 2020-11-22 04:19 | disposition home or self-care (01) ==
LOC: ER 01:45
PROC: 09C4XZZ Extirpation of Matter from Left External Auditory Canal, External Approach (ICD-10-PCS; principal; 2020-11-22)
DX: T16.2XXA Foreign body in left ear, initial encounter (principal)
CPT/HCPCS: 99284